=== PATIENT | female | born 2005 | race Caucasian/White ===

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

== ENCOUNTER 2023-02-18 16:07 | Emergency (ER) | payer OTHER ==
[~2023-02-18] VITALS: Ht 162.6 cm; Wt 54.4 kg
[2023-02-18 17:55] LABS: HEMATOCRIT 42.5 % (36.0-45.00); HEMOGLOBIN 13.9 g/dL (12.0-15.00); MEAN CELL VOLUME 90.9 fL (80.00-100.00); MEAN CORPUSCULAR HEMOGLOBIN 29.8 pg (27.00-32.0); MEAN CORPUSCULAR HGB CONC 32.8 g/dl (32.0-36.0); PLATELET COUNT 158 K/uL (150-450); RED BLOOD COUNT 4.68 M/uL (4.00-6.00); RED CELL DISTRIBUTION WIDTH 13.4 % (11.5-14.5)
== END 2023-02-18 22:04 | disposition home or self-care (01) ==
LOC: EMR PED 16:07 → ER 16:07 → EMR PED 16:57
PROVIDERS: Emergency Medicine
DX: J06.9 Acute upper respiratory infection, unspecified (principal); T30.0 Burn of unspecified body region, unspecified degree; Z20.822 Contact with and (suspected) exposure to COVID-19

== ENCOUNTER 2024-03-16 19:31 | Emergency (ER) | payer OTHER ==
[~2024-03-16] VITALS: Ht 147.3 cm; Wt 65.8 kg
[2024-03-16] MEDS ORDERED: DEXAMETHASONE SODIUM PHOSPHATE 4 MG/ML VIAL IM STA (19:41)
[2024-03-16] MEDS ORDERED: KETOROLAC TROMETHAMINE 30 MG VIAL IM STA (19:42)
== END 2024-03-16 22:26 | disposition home or self-care (01) ==
LOC: ER 19:33 → EMR PED 19:36 → ER 19:36 → EMR PED 22:26
DX: S93.401A Sprain of unspecified ligament of right ankle, initial encounter (principal); X58.XXXA Exposure to other specified factors, initial encounter; Y93.89 Activity, other specified; Y92.89 Other specified places as the place of occurrence of the external cause; Y99.9 Unspecified external cause status

== ENCOUNTER 2024-04-13 01:42 | Emergency (ER) | payer OTHER ==
[~2024-04-13] VITALS: Ht 147.3 cm; Wt 63.5 kg
== END 2024-04-13 04:37 | disposition home or self-care (01) ==
LOC: ER 01:44
DX: S13.4XXA Sprain of ligaments of cervical spine, initial encounter (principal); Y08.89XA Assault by other specified means, initial encounter; Y93.89 Activity, other specified; Y92.89 Other specified places as the place of occurrence of the external cause

== ENCOUNTER → 2024-09-26 | Emergency (ER) | payer OTHER ==
[~2024-09-26] VITALS: Ht 147.3 cm; Wt 66.7 kg
[~2024-09-26] MED LIST changes: +NORFLEX100MG PO
== END | disposition left against medical advice (07) ==
LOC: ER 14:08
DX: S00.93XA Contusion of unspecified part of head, initial encounter (principal); W18.39XA Other fall on same level, initial encounter; Y93.89 Activity, other specified; Y92.012 Bathroom of single-family (private) house as the place of occurrence of the external cause; Y99.9 Unspecified external cause status; R42 Dizziness and giddiness

== ENCOUNTER → 2024-12-03 | Emergency (ER) | payer OTHER | END | disposition home or self-care (01) | LOC: ER 02:43 | DX: J03.90 Acute tonsillitis, unspecified (principal) ==

== ENCOUNTER 2025-01-03 21:08 | Emergency (ER) | payer OTHER ==
[~2025-01-03] VITALS: Ht 152.4 cm; Wt 68.0 kg
[2025-01-03 21:18] VITALS: BP 132/79; O2SAT 96
[2025-01-03] MEDS ORDERED: DEXAMETHASONE SODIUM PHOSPHATE 4 MG/ML VIAL IM ONE (21:45)
[2025-01-03] MEDS ORDERED: GUAIFENESIN 200 MG/10 ML BLIST.PACK PO ONE ×2 (21:45→22:32)
[2025-01-03] MEDS ORDERED: BENZONATATE 100 MG CAPSULE PO ONE (21:45)
[2025-01-03] MEDS ORDERED: DEXAMETHASONE SODIUM PHOSPHATE 4 MG/ML VIAL ONE (22:07)
[2025-01-03] MEDS ORDERED: GUAIFENESIN/DEXTROMETHORPHAN 100MG/10ML BLIST.PACK PO ONE (22:32)
[2025-01-03 23:10] LABS: BASO % 0.6 % (0.1-1.2); EOS # 0.18 (0.04-0.54); EOS % 3.8 % (0.7-7.0); LYMPH # 2.16 (1.18-3.74); LYMPH % 45.6 % (19.3-53.1); MEAN PLATELET VOLUME 10.50 fl (9.4-12.4); MONO # 0.67 (0.24-0.82); NEUT # 1.69 (1.56-6.13); NEUT % 35.7 % (34.0-71.1); RED CELL DISTRIBUTION WIDTH 13.1 % (11.6-14.4)
[2025-01-03 23:42] LABS: COVID-19 AG NEGATIVE (NEGATIVE); LYMPHOCYTE MAN 33.0 %; MONO % 14.1 % (4.7-12.5); MONOCYTE MAN 17.0 %; NEUTROPHILS MAN 42.0 %
== END 2025-01-04 02:49 | disposition home or self-care (01) ==
LOC: ER 21:08
PROVIDERS: General Practice
DX: J06.9 Acute upper respiratory infection, unspecified (principal); Z20.822 Contact with and (suspected) exposure to COVID-19

== ENCOUNTER → 2025-02-13 | Emergency (ER) | payer OTHER ==
[~2025-02-13] VITALS: Ht 147.3 cm; Wt 68.0 kg
[~2025-02-13] MED LIST changes: +DEXAMETHASONE SODIUM PHOSPHATE 4 MG/ML VIAL IM STA; +KETOROLAC TROMETHAMINE 60 MG VIAL IM STA
== END | disposition home or self-care (01) ==
LOC: ER 02:59
DX: R51.9 Headache, unspecified (principal); R42 Dizziness and giddiness